=== PATIENT | female | born 1990 | race Caucasian/White ===

== ENCOUNTER 2020-08-16 18:08 | Inpatient (IN) | payer OTHER ==
[~2020-08-16] VITALS: Ht 162.6 cm; Wt 56.2 kg
--- NOTE | 2020-08-16 18:15 | NUR ---
called security for wanding
--- NOTE | 2020-08-16 18:17 | NUR ---
security at bedside for wanding
--- NOTE | 2020-08-16 18:21 | NUR ---
ALBERTD at bedside for questioning
[2020-08-16] MEDS ORDERED: IV NS 0.9% 1,000 ML BAG IV ONE (18:30)
[2020-08-16 18:50] LABS: BASOPHILS # (AUTO) 0.1 /CMM (0.0-0.2); EOSINOPHILS % (AUTO) 0.2 % (0.0-6.0); HEMATOCRIT 40 % (33-45); HEMOGLOBIN 13.5 g/dL (11.5-14.8); LYMPHOCYTES # (AUTO) 3.4 /CMM (0.8-4.8); LYMPHOCYTES % (AUTO) 43.3 % (20.0-44.0); MEAN CORPUSCULAR HGB CONC 33 g/dl (31.0-36.0); MEAN CORPUSCULAR VOLUME 98 fL (82-100); MONOCYTES # (AUTO) 0.6 /CMM (0.1-1.30); MONOCYTES % (AUTO) 7.2 % (2.0-12.0); NEUTROPHILS # (AUTO) 3.8 /CMM (1.8-8.9); NEUTROPHILS % (AUTO) 48.3 % (43.0-81.0); PLATELET COUNT (AUTO) 504 /CMM (150-450); RED BLOOD CELL COUNT(AUTO) 4.11 MIL/uL (4.0-5.2); WHITE BLOOD COUNT (AUTO) 7.8 K/uL (4.3-11.0)
[2020-08-16 19:02] LABS: CALCIUM, SERUM 8.4 mg/dL (8.5-10.1); CREATININE 0.6 mg/dL (0.6-1.3); POTASSIUM 3.8 mmol/L (3.5-5.1)
--- NOTE | 2020-08-16 19:07 | NUR ---
JUNI FROM HOME TO ER BED 12. INTOXIXATED SMELLS OF ALCOHOL. NOT IN RESP DISTRESS, BREATHING EVEN AND UNLABORED. BROUGHT IN FOR OVERDOSE ON "PAIN RELIVER" AND "PAIN RELIVER PM". PER EMS REPORT PT TOOK ABOUT 20 PILLS. PT ALSO ADMITS TO DOING METH EARLIER. PER EMS REPORT, PT IS SUICIDAL. UPON ASKING PT, SHE DID NOT ANSWER. PT IS NOTED THOU WITH MULTIPLE LENGHTWISE SUPERFICIAL CUTS ON HER R WRIST. MD WAS AT THE BEDSIDE FOR EVAL. ORDERS RECEIVED,NOTED AND CARRIED OUT.
[2020-08-16 19:11] LABS: ALBUMIN 3.6 g/dL (3.4-5.0); BILIRUBIN,TOTAL 0.2 mg/dL (0.2-1.0); TOTAL PROTEIN, SERUM 7.5 g/dL (6.4-8.2)
[2020-08-16 19:20] LABS: BILIRUBIN,URINE Negative (NEGATIVE); COLOR,URINE YELLOW (YELLOW); LEUKOCYTE ESTERASE ,URINE Negative (NEGATIVE); NITRITE, URINE Negative (NEGATIVE); PH,URINE 6.5 (5.0-8.0); PROTEIN,URINE Negative (NEGATIVE); UGLUCOSE Negative (NEGATIVE); UROBILINOGEN,URINE 0.2 EU/dL (0.2)
[2020-08-16] MEDS ORDERED: ACETYLCYSTEINE IV 6,000 MG/30 ML VIAL IV ONE (19:30)
--- NOTE | 2020-08-16 19:30 | NUR ---
[place] [phone]
[2020-08-16 19:51] LABS: CREATINE KINASE, TOTAL 91 U/L (26-192)
[2020-08-16] MEDS ORDERED: D5W IV ONE ×2 (20:00→21:00)
[2020-08-16] MEDS ORDERED: ACETYLCYSTEINE IV ONE ×2 (20:00→21:00)
--- NOTE | 2020-08-16 20:03 | NUR ---
BED 255
[2020-08-16] MEDS ORDERED: Magnesium 1GM/D5W 100ML PREMIX 100 ML IV ONE (20:08)
[2020-08-16] MEDS: Magnesium 1GM/D5W 100ML PREMIX 100 ML IV SCH ×2 (20:23→21:30)
[2020-08-16] MEDS ORDERED: MAGNESIUM HYDROXIDE 30 ML UDC PO PRN (20:30)
[2020-08-16] MEDS ORDERED: Z GUARD REMEDY 2 OZ OINT TP PRN (20:30)
--- NOTE | 2020-08-16 20:44 | NUR ---
REPORT GIVEN TO JING KELSEY FOR CHERELLE
--- NOTE | 2020-08-16 20:50 | NUR ---
ICU/ROULETTE DEALER RECEIVED REPORT FROM THE ER NURSE.AWAIT FOR PT TO COME.
--- NOTE | 2020-08-16 21:09 | NUR ---
PT TRANSPORT TO UNIT ON [facility] WITH EMT AND RN AT BEDSIDE W/ ACLS PROTOCOL. NAD NOTED DURING TRANSPORT.
--- NOTE | 2020-08-16 21:10 | NUR ---
ICU/COFFEE BLENDER THE SECOND LOADING DOSE OF ACETYLCYSTEINE WAS HUNG UP BY CHARGE NURSE.
[2020-08-16] MEDS: IV NS 0.9% 1,000 ML IV PRN (21:11)
[2020-08-16 21:12] VITALS: BP 137/92
[2020-08-16 21:15] VITALS: BP 139/114
[2020-08-16 21:30] VITALS: BP 137/92
--- NOTE | 2020-08-16 21:30 | NUR ---
ICU/DREDGING INSPECTOR PT PLACED INTO BED, PLACED ON MONITOR. SITTER AT BEDSIDE.
--- NOTE | 2020-08-16 21:30 | NUR ---
ICU/CARPENTRY FOREMAN SEIZURES PRECAUTIONS DONE, BED RAILS WERE PADDED.
[2020-08-16 21:31] VITALS: BP 145/58
[2020-08-16] MEDS: ONDANSETRON HCL/PF 4 MG/2 ML VIAL IVP PRN (21:58)
[2020-08-16 22:00] VITALS: BP 132/86
--- NOTE | 2020-08-16 22:00 | NUR ---
ICU/ELEMENTARY EDUCATOR CALLED GAVE UPDATE ON PT. SAID HE WILL CALL TOMORROW.
--- NOTE | 2020-08-16 22:30 | NUR ---
ICU/ENVIRONMENTAL AIR SPECIALIST ZOFRAN GIVEN IVP BY CHARGE NURSE TO VOMITING X1, REDDISH LIQUID. WILL MONITOR THIS PT.
--- NOTE | 2020-08-16 22:45 | NUR ---
ICU/PAYROLL SUPERVISOR JACQUIE FROM POISON CONTROL CALLED ASKED TO HAVE AN EKG, DUE TO POSSIBLE WIDENING QT INTERVAL, AND SALICYLATES, TO MAKE SURE IT GOES DOWN. ALSO ASKED IF MAG 2GMS WAS GIVEN, WHICH WAS. NOTIFED CHARGE NURSE ABOUT THESE.
[2020-08-16 23:00] VITALS: BP 138/30
--- NOTE | 2020-08-16 23:00 | NUR ---
ICU/SHAKE SPLITTER ELENITA MOORE CAME TO SEE PT, NOTIFED HER ABOUT THE EKG AND SALICYLATES LEVEL. SAID OK. ALSO TOLD HER ABOUT PAIN AND VOMITING. ULTRUM WAS ORDERED FOR PAIN AND DILAUDID IF PAIN IS BAD ENOUGH.
[2020-08-16] MEDS ORDERED: TRAMADOL HCL 50 MG TABLET PO PRN (23:30)
[2020-08-16] MEDS ORDERED: HYDROMORPHONE 1 MG/1 ML DISP.SYRIN IV PRN ×2 (23:30)
--- NOTE | 2020-08-16 23:35 | NUR ---
ICU/HEALTH INFORMATION MANAGER EKG WAS IMPROVING, NO WIDENING QT AND THE LAB WAS DRAWN.
[2020-08-17] VITALS (24 sets, daily range): BP systolic 109–157; BP diastolic 46–97
--- NOTE | 2020-08-17 00:10 | NUR ---
ICU/VIDEO GAME ENGINEER SALICYLATES WAS RESULTED WITH IT AT 2.0 DOWN FROM 3.3. WILL MONITOR THIS.
--- NOTE | 2020-08-17 00:30 | NUR ---
ICU/MEAT LOINER PT VOMITED X2, REDDISH LIQUID. MADE ELENITA MOORE AWARE. NO NEW ORDERS.
[2020-08-17] MEDS ORDERED: D5W IV ONE (01:00)
[2020-08-17] MEDS ORDERED: ACETYLCYSTEINE IV ONE (01:00)
--- NOTE | 2020-08-17 01:10 | NUR ---
ICU/BUSINESS BANKING MANAGER THE THIRD MAINTENANCE DOSE OF ACETYLCYSTEINE WAS HUNG UP BY CHARGE NURSE.
[2020-08-17 02:10] LABS: BASOPHILS % (AUTO) 0.4 % (0.0-2.0); EOSINOPHILS % (AUTO) 0.2 % (0.0-6.0); HEMATOCRIT 37 % (33-45); HEMOGLOBIN 12.2 g/dL (11.5-14.8); LYMPHOCYTES # (AUTO) 3.2 /CMM (0.8-4.8); LYMPHOCYTES % (AUTO) 28.5 % (20.0-44.0); MEAN CORPUSCULAR HGB CONC 33 g/dl (31.0-36.0); MEAN CORPUSCULAR VOLUME 97 fL (82-100); MONOCYTES # (AUTO) 1.2 /CMM (0.1-1.30); MONOCYTES % (AUTO) 10.2 % (2.0-12.0); NEUTROPHILS # (AUTO) 6.9 /CMM (1.8-8.9); NEUTROPHILS % (AUTO) 60.7 % (43.0-81.0); PLATELET COUNT (AUTO) 403 /CMM (150-450); RED BLOOD CELL COUNT(AUTO) 3.76 MIL/uL (4.0-5.2); WHITE BLOOD COUNT (AUTO) 11.4 K/uL (4.3-11.0)
[2020-08-17] MEDS: Magnesium 1GM/D5W 100ML PREMIX 100 ML IV SCH ×2 (02:13→02:30)
[2020-08-17] MEDS: PANTOPRAZOLE 40 MG VIAL IV SCH ×3 (02:15→17:18)
[2020-08-17 02:25] LABS: ALBUMIN 3.1 g/dL (3.4-5.0); BILIRUBIN,TOTAL 0.5 mg/dL (0.2-1.0); CALCIUM, SERUM 7.7 mg/dL (8.5-10.1); CREATININE 0.6 mg/dL (0.6-1.3); MAGNESIUM 2.2 mg/dL (1.8-2.4); PHOSPHORUS 2.8 mg/dL (2.5-4.9); POTASSIUM 3.6 mmol/L (3.5-5.1); TOTAL PROTEIN, SERUM 6.5 g/dL (6.4-8.2)
[2020-08-17] MEDS ORDERED: MIRT-119 PO (02:33)
--- NOTE | 2020-08-17 02:49 | NUR ---
ICU/OPERATIONS RESEARCH ANALYST PROTONICS WERE ORDERED FOR VOMITING. CHARGE NURSE MADE AWARE OF THIS.
--- NOTE | 2020-08-17 03:16 | NUR ---
ICU/EARRING MAKER THE LAST DOSE OF MAGNESIUM WAS NOT GIVEN DUE TO THE LEVEL BEING 2.2. THE LAST WERE DRAWN BEFORE THE THIRD BAG WAS HUNG UP. TERESA KWONG WAS CALLED ABOUT THIS SAID NOT TO GIVE THE LAST DOSE. THIS WAS CANCELLED.
[2020-08-17] MEDS: IV NS 0.9% 1,000 ML IV PRN ×3 (04:38→21:26)
--- NOTE | 2020-08-17 07:30 | NUR ---
TELECOMMUNICATIONS FIELD TECHNICIAN NOTES RECEIVED REPORT FROM LOW CH, PT IN BED, ASLEEP, RESPONDS TO NAME AND TOUCH, COOPERATIVE, DENIES SUICIDAL IDEATION AT THIS TIME. SINUS RHYTHM ON MONITOR, DENIES CHEST DISCOMFORT/PAIN, WITH IV ACCESS TO RT HAND 22, ONGOING NS AT 125 ML/HR, LEFT FA G 20 WITH ONGOING ACETADOTE AT 64 ML/HR UNTIL 1700 [TO CONSUME]. BOTH IV ACCESS SITE CLEAR. SEE NURSING FLOWSHEET FOR SKIN ISSUES. NPO FOR NOW. FORPSYCH CONSULT. SITTER AT BEDSIDE. SAFETY MEASURES IN PLACE, BED LOW LOCKED, SR UP X 2, CALL LIGHT WITHIN REACH. WILL CONTINUE TO MONITOR.
[2020-08-17] MEDS ORDERED: LORAZEPAM INJ 2 MG/ML VIAL IV PRN (09:00)
[2020-08-17] MEDS ORDERED: PANTOPRAZOLE 40 MG VIAL IV SCH (09:00)
--- NOTE | 2020-08-17 09:30 | NUR ---
RN NOTES PER DR. CHANCE. ZEFERINO FOR REGULAR DIET.
--- NOTE | 2020-08-17 09:55 | NUR ---
RN NOTES DR. DE LEON AT BEDSIDE FOR PSYCH CONSULT.
--- NOTE | 2020-08-17 13:58 | NUR ---
"SS Consult: SS Consult requested for Suicidal attempt by OD. The pt. is a 30 year old female who was BIBRA after being found unresponsive by her , En Hernandez [phone]. The pt. is alert & oriented x 4 and makes appropriate eye contact. Pt.s mood is euthymic with full affect. Thought process & content is WNL. Pt. stated that she has a Hx. of Borderline personality disorder, Depression, Anxiety and has been on and off her meds and admits to attempting suicide about 10 times and self-mutilation(cutting). Pt. stated she was attempting to commit suicide by OD. Per pt. she uses Meth & heroin daily and drinks 1 liter of Vodka Daily. This pt. lives at home [[address] [place] [address]. [facility] [address]; [phone]] with her , En Hernandez who is also a drug user, pet pt. Pt. gave verbal consent for her to be contacted. SW called & left him a voicemail. is to visit pt. later today, per nursing. SW offered voluntary psych admission and pt. stated she would like to speak to her before deciding. Pt. stated she has no intention of quitting the drug use. Pt. stated she does not have an outside psychiatrist. SW provided pt. with addiction & mental health resources. SW provided pt. with another resource: [facility] Dialectical Behavioral Therapy: [phone] | [email or web address] which is training for improving emotion regulation. Pt. accepted all resources. Pt. was calm, pleasant and compliant throughout entire interview. Pt. is denying current SI and denies having a plan. Pt. denies HI and denies hallucinations. Patient was seen by Psychiatrist, Dr. Bob per nursing. SVETLANA provide pt. with the following resources : ADDICTION RESOURCES For Drugs and Alcohol [facility] Substance Abuse Helpline([facility] Outpatient treatment, residential treatment, recovery support for youth and adults [facility] www.JottfaX-Factor Communications Holdingsounseling.linkedFA [facility] Teen programs for drug/alcohol education and support [facility] [place]. Program for adults, sliding scale provides support and education [facility] www.Notch W[employer] Movement Captureation.org [place]; Outpatient/residential treatment programs; transition to sober living [facility] www.cri-help.org [place]; Outpatient and residential treatment programs; transition to sober living [facility] [place] [facility] Khadar Laura; Outpatient education and supportive programs for teens and adults [facility] www.oasiswomensrecovery.org [place]; Residential treatment and work program for females only [facility] [place] www.phoBackspacesxchicago.org [place]: Outpatient/residential treatment program for teens and young adults [facility] www.[facility].org [place] [facility], inpatient, outpatient for adults and youth [facility]. [place]; Outpatient programs and referrals to community residential programs. Alcoholics Anonymous -SFV information and meeting and schedules www.aa-intergroup.org [place]jno-Lsryepf https://al-anon.org/ [place] support groups for family of alcoholics. Marijuana Anonymous www.madistrict6.org -SFV listing of meetings Narcotics Anonymous www.na.org SOBER LIVING RESOURCES [facility] www.soberhousing.net A non-profit agency that provides resources to recovery and sober living homes throughout [facility] Sober Living Homes: A Work in Progress, Dami [facility] [place] [facility], [place] [facility] Sober Living Homes: [facility] [phone] [place], [place] [facility] [place] [facility] Coed Sober Living Homes: [facility] Counseling--Outpatient [facility] [address] [place] [address] [place] [address] (Specializes in in-depth psychotherapy for emotional distress: anxiety, depression, interpersonal conflicts, life transitions, childhood abuse) [facility] [address] [place] [address] (Assist with solving problem marital difficulties, separation & divorce, aging parents, & grief, chronic & terminal illness) [facility] [address] [place] [address] (Deal with loss & grief, anxiety, marital difficulties) Homebound/Mental Health Services [address] [facility] [address] [place] [address] (Provide in-home mental services to people who are incapable of leaving their homes) Organization for Needs of the Elderly Senior Service/Resource Center [address] [place] [address] [facility] [address] [place] [address] PSYCHIATRIC OUTPATIENT SERVICES [facility] Partial Hospitalization and Intensive Outpatient Program (Managed Care and [place] Only)[address] [facility] [phone] [facility] Partial Hospitalization and Outpatient Prjjldg[address] [facility] [address] [place], [place] [phone] [facility] Partial Hospitalization and Outpatient Tyvdasu[address] [place], [place] [phone] [facility] [address] [facility] [address] [place], [place] [phone] [facility] Partial Hospitalization and Outpatient Oeutmum91835 Emelita [facility] Khadar DuncanT[place], [phone] [facility] [address], [place] [address] Crisis and Hotline Telephone Numbers 24-Hour service unless stated [place] Crisis Hotlines: [facility] Mental Health/Crisis Line........[phone] Suicide Prevention Center (24 Hours).......[phone] Suicide Prevention Crisis Center.......[phone] (24 Hours) Assaults Against Women Hotline.........543.495.5116 (24 Hours -- [facility]) Women and Children Crisis Group Home...........[phone] (24 Hours) Child Abuse Hotline............370.727.2865 [facility] R[facility] Treatment Center (24 Hours)..........[phone] Alcoholics Anonymous (24 Hours)..........[phone] Cocaine Anonymous (24 Hours)............[phone] Narcotics Anonymous (24 Hours)..........[phone] Mental Health Services Denise Pena [address] [place] [address] Services: Outpatient therapy for children, teens, young adults, adults, older adults, and families; Psychiatric services, medication support"
--- NOTE | 2020-08-17 14:48 | NUR ---
RN NOTES PER POISON CONTROL, DO REPEAT LIVER FUNCTION TEST, TYLENOL, INR, EKG ONE HOURS AFTER ACETADOTE IV.
--- NOTE | 2020-08-17 17:14 | NUR ---
RN NOTES RECEIVED A CALL FROM POISON CONTROL, THEY WANT ALL THE TEST THEY CALLED TO BE DONE STAT.
[2020-08-17] MEDS: risperiDONE 1 MG TABLET PO SCH (17:18)
[2020-08-17 18:10] LABS: ALBUMIN 2.9 g/dL (3.4-5.0); BILIRUBIN,DIRECT 0.1 mg/dL (0.0-0.2); BILIRUBIN,TOTAL 0.5 mg/dL (0.2-1.0); TOTAL PROTEIN, SERUM 6.2 g/dL (6.4-8.2)
--- NOTE | 2020-08-17 18:27 | NUR ---
INSPECTOR CLIP ON SUNGLASSES NOTES PT IN BED, ASLEEP, RESPONDS TO NAME AND TOUCH, COOPERATIVE, DENIES SUICIDAL IDEATION AT THIS TIME. SINUS RHYTHM ON MONITOR, DENIES CHEST DISCOMFORT/PAIN, WITH IV ACCESS TO RT HAND 22, ONGOING NS AT 125 ML/HR, BOTH IV ACCESS SITE CLEAR. REGULAR DIET. SITTER AT BEDSIDE. SAFETY MEASURES IN PLACE, BED LOW LOCKED, SR UP X 2, CALL LIGHT WITHIN REACH. WALL NEEDS MET. NO OTHER SIGNIFICANT CHANGE IN CONDITION. WILL ENDORSE TO NEXT SHIFT FOR CHERELLE. WAITING FOR LAB RESULTS. TO RELAY TO POISON CONTROL.
--- NOTE | 2020-08-17 19:30 | NUR ---
RN NOTES RECEIVED PATIENT IN BED AOX4, BREATHING NORMAL RESPIRATION EVEN NON LABORED. DENIES ANY S/S OF SUICIDAL IDEATION AT THIS TIME. TELE MONITOR SR HR IN 80'S'S. ABD SOFT AND NON DISTENDED. IV'S SITES INTACT NS IS RUNNING @125ML/HR. SEE FLOW SHEET FOR SKIN ISSUES. 1:1 SITTER AT BEDSIDE FOR SAFETY. SAFETY MEASURES IN PLACE,SIDE RAILS UP X2, BED IN LOW NAD LOCKED POSITION. CALL LIGHT WITHIN REACH. WILL CONT TO MONITOR FOR CHERELLE.
[2020-08-17] MEDS: ONDANSETRON HCL/PF 4 MG/2 ML VIAL IVP PRN (19:36)
--- NOTE | 2020-08-17 19:36 | NUR ---
RN NOTES PATIENT HAD X1 EPISODE OF EMESIS PRN ZOFRAN GIVEN WILL REASSESS FOR EFFECTIVENESS. NO S/S OF ASPIRATION NOTED.
--- NOTE | 2020-08-17 20:16 | NUR ---
RN NOTES PRN ZOFRAN WAS EFFECTIVE NO EPISODE OF EMESIS OR NAUSEA NOTED. PATIENT RESTING COMFORTABLE.
--- NOTE | 2020-08-17 20:20 | NUR ---
RN NOTES RECEIVED CALL FROM POISON CONTROL TALKED TO EDWARD ASKING FOR PT/INR AND AST, ALT TYLENOL TOXICITY LEVEL, ASPIRIN LEVEL,EKG. PER EDWARD PATIENT IS CLEARED FROM TYLENOL TOXICITY AND CONT TO MONITOR FOR EKG DUE TO PROLONGED QTC. STEVEN KWONG NOTIFIED NEW ORDER TO REPEAT EKG IN AM PER EDWARD. CHARGE NURSE NOTIFIED.
[2020-08-17] MEDS ORDERED: MIRTAZAPINE 15 MG TABLET PO SCH (22:00)
[2020-08-18] VITALS (14 sets, daily range): BP systolic 108–156; BP diastolic 45–100
[2020-08-18 02:25] LABS: CALCIUM, SERUM 8.3 mg/dL (8.5-10.1); CREATININE 0.6 mg/dL (0.6-1.3); POTASSIUM 3.7 mmol/L (3.5-5.1)
[2020-08-18 04:19] LABS: BASOPHILS % (AUTO) 0.4 % (0.0-2.0); EOSINOPHILS % (AUTO) 0.4 % (0.0-6.0); HEMATOCRIT 36 % (33-45); HEMOGLOBIN 11.7 g/dL (11.5-14.8); LYMPHOCYTES # (AUTO) 1.9 /CMM (0.8-4.8); LYMPHOCYTES % (AUTO) 20.1 % (20.0-44.0); MEAN CORPUSCULAR HGB CONC 33 g/dl (31.0-36.0); MEAN CORPUSCULAR VOLUME 99 fL (82-100); MONOCYTES # (AUTO) 0.7 /CMM (0.1-1.30); MONOCYTES % (AUTO) 7.4 % (2.0-12.0); NEUTROPHILS # (AUTO) 6.8 /CMM (1.8-8.9); NEUTROPHILS % (AUTO) 71.7 % (43.0-81.0); PLATELET COUNT (AUTO) 350 /CMM (150-450); RED BLOOD CELL COUNT(AUTO) 3.64 MIL/uL (4.0-5.2); WHITE BLOOD COUNT (AUTO) 9.5 K/uL (4.3-11.0)
[2020-08-18 04:32] LABS: BILIRUBIN,DIRECT 0.1 mg/dL (0.0-0.2); BILIRUBIN,TOTAL 0.5 mg/dL (0.2-1.0); CALCIUM, SERUM 8.1 mg/dL (8.5-10.1); CREATININE 0.5 mg/dL (0.6-1.3); MAGNESIUM 1.9 mg/dL (1.8-2.4); PHOSPHORUS 2.3 mg/dL (2.5-4.9); POTASSIUM 3.6 mmol/L (3.5-5.1); TOTAL PROTEIN, SERUM 6.2 g/dL (6.4-8.2)
[2020-08-18] MEDS: IV NS 0.9% 1,000 ML IV PRN (05:41)
--- NOTE | 2020-08-18 07:14 | NUR ---
RN NOTES PATIENT CONTINUES ON 1:1 SITTER. PATIENT DENIES ANY SUICIDAL IDEATION. VITAL SIGNS REMAINED STABLE. AM CARE PROVIDED. NO S/S OF ACUTE DISTRESS NOTED. BREATHING NORMAL, RESPIRATION EVEN NON LABORED. DENIES ANY PAIN OR N/V. ENDORSED TO AM NURSE FOR CHERELLE.
--- NOTE | 2020-08-18 07:30 | NUR ---
EMBROIDERY SPECIALIST OPENING NOTES RECEIVED PT IN BED AOX4, BREATHING RA WITH NO SIGNS OF RESP DISTRESS OR SOB, RESPIRATION EVEN AND UNLABORED. PT DENIES SUICIDAL IDEATION AN PAIN AT THIS TIME. TELE MONITOR SR HR IN 70s. PT FINISHED IV ACETADOTE 08/17 @ 1700. PT RT HAND #22 AND LFA #20 FLUSHED, INTACT NS IS RUNNING @125ML/HR. PT HAS LT HIP SCAR FROM HIP REPLACEMENT, RFA CUTS. 1:1 SITTER AT BEDSIDE. ALL SAFETY PRECAUTIONS IN PLACE, WILL CONT TO MONITOR
[2020-08-18] MEDS: PANTOPRAZOLE 40 MG VIAL IV SCH (08:29)
[2020-08-18] MEDS: risperiDONE 1 MG TABLET PO SCH (08:29)
[2020-08-18] MEDS ORDERED: MUPIROCIN OINT 2% 22 GM TUBE NS SCH (09:00)
--- NOTE | 2020-08-18 10:30 | NUR ---
Bearing Press Machine Operator note: information services manager follow up with patient to confirm discharge plan. Patient is a 30-year-old, female. SW met with patient at her bedside on the intensive care unit. Patient is alert and oriented x4. Patient is calm. SW discussed discharge plan with the patient and patient stated she plans to return to her prior living arrangement at home with her spouse. SW asked patient if she feels safe to return to her home and patient stated that she feels safe and that her spouse will be picking her up from the hospital, upon discharge. Patient stated that she plans to utilize outpatient mental health resources and is motivated to initiate individual psychotherapy and substance use counseling on her own with the resources provided by another SW on 08/17/2020. Plan: SW will return to her prior living arrangement once she is medically cleared. No further SS interventions are needed however, aids social worker will follow up if needed.
--- NOTE | 2020-08-18 10:59 | NUR ---
RN NOTE POISON CONTROL SPOKE WITH FILIPPO FROM POISON CONTROL REGARDING PT STATUS, ALL QUESTIONS ANSWERED. PER FILIPPO, HE WILL CLOSE CASE ON THEIR END
[2020-08-18] MEDS ORDERED: K PHOS NEUTRAL 250 MG TABLET PO ONE (12:30)
--- NOTE | 2020-08-18 13:30 | NUR ---
RN NOTE PT DISCHARGED IN STABLE CONDITION. PT DENIES ANY SUICIDAL IDEATION. PT STATES SHE FEELS SAFE AT HOME. ALL VITALS WNL. PT DISCHARGED WITH ALL BELONGINGS IN HER POSSESSION
--- NOTE | 2020-08-18 14:27 | NUR ---
Retail Parts Professional note: 11:15am: ACSJuan A Eastman consulted on this case with this PAPER INSPECTOR. Patient is a year old female who came to the hospital for OD with Tylenol. Patient was seen by ACSJuan A Perez on 08/17, who also consulted with this PAPER INSPECTOR regarding patient's needs. ACSW Raiza followed up with the patient on 08/18. Per both ACSWs patient is oriented x 4, lives at home with her . Patient is independent and responsible for herself. Patient has a hx of polysubstance abuse. Both ACSWs assessed patients psychosocial needs and discussed with this PAPER INSPECTOR. Community resources were offered, along with the option of voluntary psychiatric hospitalization. Patient accepted the community resources. Patient initially had stated that she would talk to her about voluntary psychiatric hospitalization, but upon follow up today, patient declined and stated that she will be returning home with her , and that she felt safe at home. Patient was also seen by psychiatrist, Dr. Bob. At this time, patient is responsible for self. Patient is not a dependent adult. Patient will return to her previous living arrangement with her once patient is medically cleared.
== END 2020-08-18 13:30 | disposition home or self-care (01) | DRG 817 ==
LOC: ER 18:14 → ICU 20:18
PROVIDERS: ADMIT Nurse Practitioner Acute Care; ATTEND Internal Medicine
DX: T39.1X2A Poisoning by 4-Aminophenol derivatives, intentional self-harm, initial encounter (principal); F33.3 Major depressive disorder, recurrent, severe with psychotic symptoms; F10.10 Alcohol abuse, uncomplicated; Z96.649 Presence of unspecified artificial hip joint; F17.210 Nicotine dependence, cigarettes, uncomplicated; Y92.009 Unspecified place in unspecified non-institutional (private) residence as the place of occurrence of the external cause; R94.31 Abnormal electrocardiogram [ECG] [EKG]; F43.10 Post-traumatic stress disorder, unspecified; Z79.899 Other long term (current) drug therapy; Z20.822 Contact with and (suspected) exposure to COVID-19; Y90.6 Blood alcohol level of 120-199 mg/100 ml; F60.3 Borderline personality disorder; F41.0 Panic disorder [episodic paroxysmal anxiety]; F19.10 Other psychoactive substance abuse, uncomplicated
CPT/HCPCS: 36415; 71045-TC; 80048-TC; 80053-TC; 80076-TC; 82550-TC; 82962-TC; 83735-TC; 84100-TC; 84702-TC; 85025-TC; 85610-TC; 85730-TC; 87081-TC; C9113; G0378; G0480; J0132; J2405; J3475; J7030; J7060; J7070